=== PATIENT | male | born 1950 | race Caucasian/White ===

== ENCOUNTER 2022-04-04 14:10 | Emergency (ER) | payer MEDICARE, SELFPAY ==
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
[2022-04-04 14:18] VITALS: BP 130/76; PULSE 104; RESP 18; TEMP 36.6; O2SAT 98
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
[2022-04-04 15:45] VITALS: O2SAT 98
--- NOTE | 2022-04-04 15:56 | PC.NURSE ---
pt able to keep water down without vomiting.
[2022-04-04 16:33] VITALS: PULSE 98; RESP 18; O2SAT 100
== END 2022-04-04 16:36 | disposition home or self-care (01) ==
PROVIDERS: Emergency Provider Emergency Medicine
DX: T18.128A Food in esophagus causing other injury, initial encounter (principal); X58.XXXA Exposure to other specified factors, initial encounter; G20 Parkinson's disease
CPT/HCPCS: 71046; 99283